=== PATIENT | male | born 2000 | race Caucasian/White ===

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

== ENCOUNTER 2025-06-29 03:53 | Emergency (ER) | payer OTHER ==
[2025-06-29 04:10] VITALS: BP 127/76; PULSE 76
== END 2025-06-29 04:40 | disposition home or self-care (01) ==
LOC: JP.ED 03:53
DX: R10.20 Pelvic and perineal pain unspecified side (principal)
CPT/HCPCS: 99283